=== PATIENT | male | born 1945 | race Hispanic/Latino ===

== ENCOUNTER 2021-06-22 19:30 | Emergency (ER) | payer MEDICARE ==
[2021-06-22 19:59] LABS: #Basophils 0.1 thou/uL (0.0-0.2); #Eosinphils 0.2 thou/uL (0.0-0.7); #Lymphocytes 0.6 thou/uL (1.20-3.40); #Monocytes 0.5 thou/uL (0.11-0.59); #Neutrophils 8.3 thou/uL (1.40-6.50); %Basophils 0.8 % (0.0-1.0); %Eosinophils 2.2 % (0.0-10.0); %Lymphocytes 5.9 % (21.0-51.0); %Monocytes 5.3 % (0.0-10.0); %Neutrophils 85.8 % (42.0-75.0); Hemoglobin 12.1 g/dL (14.0-18.0); Mean Corpuscular HGB CONC 30.9 g/dL (32.0-36.0); Mean Corpuscular Hemoglobin 29.1 pg (27.0-31.0); Mean Platelet Volume 7.5 fL (7.4-10.4); Platelet Count 283 thou/uL (130-400); RBC Distribution Width 14.3 % (11.5-14.5); Red Blood Cell (RBC) Count 4.18 mill/uL (4.70-6.10); White Blood Cell (WBC) Count 9.6 thou/uL (4.8-10.8)
[2021-06-22 20:08] LABS: INR-International Normal Ratio 1.2; Prothrombin Time 15.6 sec (12.0-14.7)
[2021-06-22] MEDS ORDERED: Aspirin Chewable 81 MG TAB ONE (20:13)
[2021-06-22 20:15] LABS: ALT (SGPT) 75 U/L (8-55); AST (SGOT) 37 U/L (5-34); Albumin 3.8 g/dL (3.4-4.8); Alkaline Phosphatase 106 U/L (40-110); Anion Gap 15 mmol/L (10-20); BUN (Urea Nitrogen) 26 mg/dL (8.4-25.7); Calc. Creatinine Clearance 0 mL/min (70-130); Calcium 8.7 mg/dL (7.8-10.44); Carbon Dioxide 26 mmol/L (23-31); Chloride 102 mmol/L (98-107); Globulin 2.7 g/dL (2.4-3.5); Glucose 146 mg/dL (83-110); Magnesium 1.7 mg/dL (1.6-2.6); Potassium 3.8 mmol/L (3.5-5.1); Protein, Total 6.5 g/dL (5.8-8.1); Sodium 139 mmol/L (136-145)
[2021-06-22 20:17] LABS: PTT 30.2 sec (22.9-36.1)
[2021-06-22] MEDS ORDERED: Furosemide 40 MG/4 ML VIAL ONE (20:43)
[2021-06-22 20:53] LABS: CKMB 6.7 ng/mL (0-6.6)
[2021-06-22] MEDS ORDERED: Ondansetron PF 4 MG/2 ML Vial ONE (21:10)
[2021-06-22] MEDS ORDERED: Morphine 4 MG/ML VIAL ONE (21:10)
[2021-06-22 21:27] LABS: SARS-CoV-2 NAA Rapid Test Not Detected (NotDetected)
[2021-06-22 23:04] LABS: Troponin I 0.076 ng/mL (< 0.028)
== END 2021-06-22 23:05 | disposition short-term general hospital (02) ==
LOC: NAV ERS 19:30
DX: I11.0 Hypertensive heart disease with heart failure (principal); I50.9 Heart failure, unspecified; I35.0 Nonrheumatic aortic (valve) stenosis; I21.4 Non-ST elevation (NSTEMI) myocardial infarction; N28.9 Disorder of kidney and ureter, unspecified; E11.9 Type 2 diabetes mellitus without complications; I48.91 Unspecified atrial fibrillation; R77.8 Other specified abnormalities of plasma proteins; E78.5 Hyperlipidemia, unspecified; D64.9 Anemia, unspecified; Z20.822 Contact with and (suspected) exposure to COVID-19
CPT/HCPCS: 71045; 80053; 82553; 83735; 83880; 84484 ×2; 85025; 85610; 85730; 93005; 94760; U0002; 96374; 96375; J1940; J2270; J2405

== ENCOUNTER 2022-08-03 14:55 | Emergency (ER) | payer MEDICARE, OTHER ==
[2022-08-03 15:46] LABS: #Lymphocytes 0.3 thou/uL (1.20-3.40); #Monocytes 0.7 thou/uL (0.11-0.59); #Neutrophils 11.2 thou/uL (1.40-6.50); %Basophils 0.4 % (0.0-1.0); %Eosinophils 0.2 % (0.0-10.0); %Lymphocytes 2.3 % (21.0-51.0); %Monocytes 5.9 % (0.0-10.0); %Neutrophils 91.2 % (42.0-75.0); Hemoglobin 14.1 g/dL (14.0-18.0); Mean Corpuscular HGB CONC 30.4 g/dL (32.0-36.0); Mean Corpuscular Volume 95.6 fl (78.0-98.0); Mean Platelet Volume 7.4 fL (7.4-10.4); Platelet Count 252 10x3/uL (130-400); RBC Distribution Width 13.9 % (11.5-14.5); Red Blood Cell (RBC) Count 4.87 mill/uL (4.70-6.10); White Blood Cell (WBC) Count 12.2 10x3/uL (4.8-10.8)
[2022-08-03 15:53] LABS: INR-International Normal Ratio 1.7; PTT 28.1 sec (22.9-36.1)
[2022-08-03 15:58] LABS: ALT (SGPT) 350 U/L (8-55); AST (SGOT) 131 U/L (5-34); Albumin 3.6 g/dL (3.4-4.8); Alkaline Phosphatase 107 U/L (40-110); Anion Gap 18 mmol/L (10-20); BUN (Urea Nitrogen) 52 mg/dL (8.4-25.7); Bilirubin, Total 1.4 mg/dL (0.2-1.2); Calc. Creatinine Clearance 0 mL/min (70-130); Calcium 8.8 mg/dL (7.8-10.44); Carbon Dioxide 21 mmol/L (23-31); Chloride 102 mmol/L (98-107); Estimated GFR 49; Globulin 2.4 g/dL (2.4-3.5); Glucose 124 mg/dL (83-110); Lipase 54 U/L (8-78); Potassium 4.8 mmol/L (3.5-5.1); Sodium 136 mmol/L (136-145)
[2022-08-03 16:29] LABS: CKMB 24.2 ng/mL (0-6.6)
[2022-08-03] MEDS ORDERED: Nitroglycerin 2% Ointment 1 INCH/1 GM Packet ONE (19:12)
[2022-08-03] MEDS ORDERED: Aspirin Chewable 81 MG TAB ONE (19:12)
== END 2022-08-03 20:15 | disposition short-term general hospital (02) ==
LOC: NAV ERS 14:55
DX: I11.0 Hypertensive heart disease with heart failure (principal); I50.9 Heart failure, unspecified; E86.0 Dehydration; D72.829 Elevated white blood cell count, unspecified; N28.9 Disorder of kidney and ureter, unspecified; K75.9 Inflammatory liver disease, unspecified; R18.8 Other ascites; R53.1 Weakness; K21.9 Gastro-esophageal reflux disease without esophagitis; K58.9 Irritable bowel syndrome, unspecified; D50.9 Iron deficiency anemia, unspecified; E78.2 Mixed hyperlipidemia; G20 Parkinson's disease
CPT/HCPCS: 71045; 80053; 82140; 82553; 83605; 83690; 83880; 84484; 85025; 85610; 85730; 93005